=== PATIENT | female | born 1950 | race Caucasian/White ===

== ENCOUNTER 2016-07-11 18:50 | Inpatient (IN) | payer MEDICARE ==
[~2016-07-11] VITALS: Ht 152.4 cm; Wt 103.8 kg
[2016-07-11] MEDS ORDERED: FURO-93 PO (19:18)
[2016-07-11] MEDS ORDERED: IBUP800T PO (19:18)
[2016-07-11] MEDS ORDERED: FOLI-17 PO (19:18)
[2016-07-11] MEDS ORDERED: FLUT16SP NAS (19:18)
[2016-07-11] MEDS ORDERED: SODIUM CHLORIDE 0.9% 1,000ML IVBOLUS ONE (19:30)
[2016-07-11] MEDS ORDERED: SODIUM CHLORIDE FLUSH 10ML SYR IVF ONE (19:30)
[2016-07-11 19:40] LABS: DIFF TOTAL CELLS COUNTED 100 CELL DIFF
[2016-07-11 19:42] LABS: ANISOCYTOSIS 1+; HYPOCHROMIA 1+; MICROCYTOSIS 1+; VERIFY COUNTS? YES
[2016-07-11 19:43] LABS: OVALOCYTES 1+; POLYCHROMASIA 1+
[2016-07-11 19:48] LABS: BLOOD UREA NITROGEN 18 mg/dL (7-18)
[2016-07-11 20:19] LABS: ASPARTATE AMINO TRANSFERASE 8 U/L (15-37)
[2016-07-11] MEDS ORDERED: ACETAMINOPHEN 500 MG TABLET ONE (21:27)
[2016-07-11] MEDS ORDERED: ACETAMINOPHEN 500 MG TABLET PO ONE (21:30)
[2016-07-11] MEDS ORDERED: HYDROcodone/APAP 5/325 TABLET PO PRN (22:00)
[2016-07-11] MEDS ORDERED: ONDANSETRON 2MG/ML, 2ML IVP PRN (22:00)
[2016-07-12 00:26] VITALS: BP 137/67
[2016-07-12 02:44] LABS: BLOOD UREA NITROGEN 16 mg/dL (7-18)
[2016-07-12] MEDS: ACETAMINOPHEN 325 MG TABLET PO PRN ×3 (03:11→20:49)
[2016-07-12 03:20] VITALS: BP 133/73
[2016-07-12 06:53] VITALS: BP 161/82
[2016-07-12] MEDS: SODIUM CHLORIDE FLUSH 10ML SYR IVF SCH ×2 (09:49→20:50)
[2016-07-12] MEDS: FOLIC ACID 1 MG TABLET PO SCH (09:49)
[2016-07-12] MEDS: FUROSEMIDE 20 MG TABLET PO SCH ×2 (09:49→21:00)
[2016-07-12] MEDS: IRON SUCROSE COMPLEX 100MG/5ML IV SCH (09:49)
[2016-07-12] MEDS: FLUTICASONE NASAL SPRAY 16GM NAS SCH (10:10)
[2016-07-12] MEDS ORDERED: GOLYTELY 4,000ML ORAL.SOL PO ONE (14:00)
[2016-07-12 15:42] VITALS: BP 138/85
[2016-07-12 18:48] VITALS: BP 127/84
[2016-07-13 00:26] VITALS: BP 112/72
[2016-07-13] MEDS: ACETAMINOPHEN 325 MG TABLET PO PRN ×3 (00:37→21:10)
[2016-07-13 05:57] LABS: BLOOD UREA NITROGEN 13 mg/dL (7-18)
[2016-07-13] MEDS ORDERED: OXYcodone 5 MG/5 ML ORAL.SOL UDC PO PRN (09:00)
[2016-07-13] MEDS ORDERED: ONDANSETRON 2MG/ML, 2ML IVPush PRN (09:00)
[2016-07-13] MEDS ORDERED: HYDROmorphone 1 MG/ML, 1ML IV PRN (09:00)
[2016-07-13] MEDS ORDERED: FENTANYL PF 100 MCG/2ML IV PRN (09:00)
[2016-07-13] MEDS ORDERED: ACETAMINOPHEN 325 MG TABLET PO PRN (09:00)
[2016-07-13 09:40] VITALS: BP 113/64
[2016-07-13] MEDS: SODIUM CHLORIDE FLUSH 10ML SYR IVF SCH ×2 (10:27→21:11)
[2016-07-13] MEDS: IRON SUCROSE COMPLEX 100MG/5ML IV SCH (10:27)
[2016-07-13] MEDS: FLUTICASONE NASAL SPRAY 16GM NAS SCH (10:27)
[2016-07-13] MEDS: FOLIC ACID 1 MG TABLET PO SCH (10:28)
[2016-07-13] MEDS: FUROSEMIDE 20 MG TABLET PO SCH (10:28)
[2016-07-13] MEDS: POTASSIUM CHLORIDE 20 MEQ TAB.ER.PRT PO SCH ×2 (11:05→18:11)
[2016-07-13 13:10] VITALS: BP 118/63
[2016-07-13] MEDS ORDERED: PROPOFOL 10 MG/ML, 20ML ONE (15:51)
[2016-07-13] MEDS ORDERED: PRED10TA PO (16:30)
[2016-07-13] MEDS ORDERED: FERR325T20 PO (16:30)
[2016-07-13] MEDS ORDERED: POTA20TA14 PO (16:31)
[2016-07-13] MEDS ORDERED: DOCU-30 PO (16:31)
[2016-07-13 19:53] VITALS: BP 123/79
[2016-07-14 02:59] VITALS: BP 132/73
[2016-07-14 05:18] LABS: BLOOD UREA NITROGEN 10 mg/dL (7-18)
[2016-07-14 07:44] VITALS: BP 126/66
[2016-07-14] MEDS: IRON SUCROSE COMPLEX 100MG/5ML IV SCH (08:40)
[2016-07-14] MEDS: FOLIC ACID 1 MG TABLET PO SCH (08:40)
[2016-07-14] MEDS: FUROSEMIDE 20 MG TABLET PO SCH (08:40)
[2016-07-14] MEDS: SODIUM CHLORIDE FLUSH 10ML SYR IVF SCH (08:41)
[2016-07-14] MEDS: ACETAMINOPHEN 325 MG TABLET PO PRN (08:42)
[2016-07-14] MEDS: FLUTICASONE NASAL SPRAY 16GM NAS SCH (09:00)
== END 2016-07-14 13:00 | disposition home or self-care (01) | DRG 393 ==
LOC: ED 21:26 → EDIP 21:27 → ED 21:38 → 4WST 07-12 00:26 → DCLOUNGE 07-14 12:30
PROC: 0DJD8ZZ Inspection of Lower Intestinal Tract, Via Natural or Artificial Opening Endoscopic (ICD-10-PCS; 2016-07-13)
PROC: 0DB68ZX Excision of Stomach, Via Natural or Artificial Opening Endoscopic, Diagnostic (ICD-10-PCS; principal; 2016-07-13 08:00)
DX: K64.1 Second degree hemorrhoids (principal); K57.31 Diverticulosis of large intestine without perforation or abscess with bleeding; E44.0 Moderate protein-calorie malnutrition; E87.0 Hyperosmolality and hypernatremia; D62 Acute posthemorrhagic anemia; Z68.41 Body mass index [BMI] 40.0-44.9, adult; K25.9 Gastric ulcer, unspecified as acute or chronic, without hemorrhage or perforation; D50.9 Iron deficiency anemia, unspecified; D12.0 Benign neoplasm of cecum; D75.89 Other specified diseases of blood and blood-forming organs; E66.9 Obesity, unspecified; E87.6 Hypokalemia; G47.33 Obstructive sleep apnea (adult) (pediatric); I10 Essential (primary) hypertension; K59.00 Constipation, unspecified; M06.9 Rheumatoid arthritis, unspecified; T38.0X5A Adverse effect of glucocorticoids and synthetic analogues, initial encounter; Z96.641 Presence of right artificial hip joint; M19.90 Unspecified osteoarthritis, unspecified site; K29.50 Unspecified chronic gastritis without bleeding; R73.9 Hyperglycemia, unspecified; Z80.0 Family history of malignant neoplasm of digestive organs; Z79.52 Long term (current) use of systemic steroids; Z90.49 Acquired absence of other specified parts of digestive tract; Y92.89 Other specified places as the place of occurrence of the external cause
CPT/HCPCS: 36415; 80048; 80076; 82040; 82728; 83540; 83550; 83735; 84100; 85018; 85025; 85610; 85730; 86850; 86900; 87324; 87328; 87329; 88305; 89055; 96360; J1756; J2704; J7030; J7512